=== PATIENT | female | born 1960 | race Caucasian/White ===

== ENCOUNTER → 2016-10-28 | Outpatient (CLI) | payer OTHER | LOC: RAD 16:14 | DX: M25.571 Pain in right ankle and joints of right foot (principal); M25.774 Osteophyte, right foot ==

== ENCOUNTER → 2017-07-23 | Outpatient (CLI) | payer OTHER | LOC: RAD 11:32 | DX: M47.896 Other spondylosis, lumbar region (principal); M47.892 Other spondylosis, cervical region; R20.2 Paresthesia of skin ==

== ENCOUNTER → 2018-12-13 | Outpatient (CLI) | payer OTHER | LOC: RAD 14:42 | DX: M54.42 Lumbago with sciatica, left side (principal) ==

== ENCOUNTER 2019-01-20 10:04 | Emergency (ER) | payer OTHER ==
[~2019-01-20] VITALS: Ht 180.3 cm; Wt 69.4 kg
[2019-01-20 10:38] LABS: HEMATOCRIT 46.8 % (37.0-47.0); HEMOGLOBIN 16.2 gm/dL (12.0-15.0); MCH 30.4 pg (26.0-34.0); MCHC 34.5 g/dL (28.0-37.0); PLATELET COUNT 149 thou/uL (150-400); RBC 5.32 mil/uL (4.20-5.00); RDW 12.9 % (10.5-14.5); WBC 3.1 thou/uL (4.0-11.0)
[2019-01-20 10:42] LABS: URINE BILIRUBIN NEGATIVE (Negative); URINE BLOOD NEGATIVE (Negative); URINE CLARITY CLEAR; URINE COLOR YELLOW; URINE GLUCOSE-RANDOM* NEGATIVE (Negative); URINE KETONES NEGATIVE (Negative); URINE LEUKOCYTES-REFLEX NEGATIVE (Negative); URINE NITRITE-REFLEX NEGATIVE (Negative); URINE PROTEIN (DIPSTICK) NEGATIVE (Negative); URINE SPECIFIC GRAVITY 1.015 (1.005-1.035); URINE UROBILINOGEN 0.2 E.U./dl (0.2-1.0)
[2019-01-20 10:44] LABS: CALCIUM 9.1 mg/dL (8.5-10.1); CREATININE 0.8 mg/dL (0.6-1.0); POTASSIUM 3.5 mmol/L (3.5-5.1)
[2019-01-20 10:50] LABS: ALBUMIN 3.9 g/dL (3.4-5.0); TOTAL BILIRUBIN 0.7 mg/dL (<0.1-1.0); TOTAL PROTEIN 7.2 g/dL (6.4-8.2)
[2019-01-20 10:59] LABS: ABSOLUTE NEUTROPHILS 1.6 thou/uL (1.4-8.2); PLATELET ESTIMATE NORMAL
[2019-01-20] MEDS ORDERED: TINIDAZOLE500 MG PO (12:54)
[2019-01-20] MEDS ORDERED: BUTALB-APAP-CA1 EACH PO (12:54)
[2019-01-20 13:08] VITALS: BP 101/68
== END 2019-01-20 13:09 | disposition home or self-care (01) ==
LOC: ER 10:04
PROVIDERS: Physician Assistant
DX: R19.7 Diarrhea, unspecified (principal); E86.0 Dehydration; R51 Headache; Z88.2 Allergy status to sulfonamides

== ENCOUNTER → 2019-03-08 | Outpatient (CLI) | payer OTHER ==
[~2019-03-08] MED LIST: BUTALB-APAP-CA1 EACH PO; TINIDAZOLE500 MG PO
== END ==
LOC: RAD 09:20
DX: S52.592A Other fractures of lower end of left radius, initial encounter for closed fracture (principal); S69.92XA Unspecified injury of left wrist, hand and finger(s), initial encounter; W19.XXXA Unspecified fall, initial encounter; Y93.89 Activity, other specified; Y92.89 Other specified places as the place of occurrence of the external cause; Y99.8 Other external cause status